=== PATIENT | female | born 1990 | race Caucasian/White ===

== ENCOUNTER 2019-12-04 01:01 | Emergency (ER) | payer OTHER ==
[~2019-12-04] VITALS: Ht 180.3 cm; Wt 113.4 kg
[2019-12-04] MEDS ORDERED: NORFLEX100 MG PO (02:49)
[2019-12-04] MEDS ORDERED: PEPCID40 MG PO (02:49)
[2019-12-04] MEDS ORDERED: MEDROLDOSEPACK PO (02:49)
[2019-12-04 02:58] VITALS: BP 127/86
== END 2019-12-04 02:58 | disposition home or self-care (01) ==
LOC: ER 01:01
DX: S16.1XXA Strain of muscle, fascia and tendon at neck level, initial encounter (principal); K29.70 Gastritis, unspecified, without bleeding; M54.10 Radiculopathy, site unspecified; Z91.048 Other nonmedicinal substance allergy status; X58.XXXA Exposure to other specified factors, initial encounter; Y93.89 Activity, other specified; Y92.89 Other specified places as the place of occurrence of the external cause; Y99.8 Other external cause status

== ENCOUNTER → 2020-09-28 | Outpatient (CLI) | payer OTHER ==
[~2020-09-28] MED LIST: MEDROLDOSEPACK PO; NORFLEX100 MG PO; PEPCID40 MG PO
== END ==
LOC: SJCVCIMAG 08:10
PROVIDERS: ATTEND Internal Medicine
DX: R00.2 Palpitations (principal); R06.00 Dyspnea, unspecified; R06.02 Shortness of breath